=== PATIENT | female | born 1995 | race Caucasian/White ===

== ENCOUNTER 2018-04-24 10:52 | Outpatient (CLI) | payer OTHER | END 2018-04-24 13:00 | disposition home or self-care (01) | LOC: OBT 10:52 → L-D 10:52 → OBT 13:00 | DX: O36.8130 Decreased fetal movements, third trimester, not applicable or unspecified (principal); Z3A.39 39 weeks gestation of pregnancy | CPT/HCPCS: 76815; 76818 ==

== ENCOUNTER 2018-04-28 07:18 | Outpatient (CLI) | payer OTHER ==
[2018-04-28 10:09] LABS: RUPTURE FETAL MEMBRANES NEGATIVE (NEGATIVE)
== END 2018-04-28 10:25 | disposition home or self-care (01) ==
LOC: OBT 07:18 → L-D 07:18 → OBT 10:25
DX: O41.93X0 Disorder of amniotic fluid and membranes, unspecified, third trimester, not applicable or unspecified (principal); Z3A.39 39 weeks gestation of pregnancy
CPT/HCPCS: 84112

== ENCOUNTER 2018-04-28 11:05 | Inpatient (IN) | payer OTHER ==
[2018-05-01] MEDS: LACTATED RINGER'S 1,000 ML IV ×3 (09:49→23:11)
[2018-05-01 09:53] LABS: ADD MAN DIFF? NO
[2018-05-01 09:55] LABS: BASOPHILS % 0.1 % (0.0-2.0); EOSINOPHILS % 0.1 % (0.0-7.0); HEMATOCRIT 37.1 % (37.0-47.0); HEMOGLOBIN 12.3 g/dl (12.0-16.0); LYMPHOCYTES # 1.7 10^3/ul (0.8-2.9); LYMPHOCYTES % 20.9 % (15.0-51.0); MEAN CORPUSCULAR HEMOGLOBIN 29.4 pg (29.0-33.0); MEAN CORPUSCULAR HGB CONC 33.2 g/dl (32.0-37.0); MEAN CORPUSCULAR VOLUME 88.8 fl (82.0-101.0); MEAN PLATELET VOLUME 10.8 fl (7.4-10.4); MONOCYTE # 0.5 10^3/ul (0.3-0.9); MONOCYTES % 6.7 % (0.0-11.0); NEUTROPHIL # 5.7 10^3/ul (1.6-7.5); NEUTROPHILS % 71.8 % (39.0-77.0); PLATELET COUNT 216 10^3/UL (140-415); RED BLOOD COUNT 4.18 10^6/ul (4.20-5.40); RED CELL DISTRIBUTION WIDTH 14.2 % (11.5-14.5)
[2018-05-01 09:55] LABS: WHITE BLOOD COUNT 7.9 10^3/ul (4.8-10.8)
[2018-05-01] MEDS ORDERED: METHYLERGONOVINE 0.2 MG INJ IM (10:00)
[2018-05-01] MEDS ORDERED: IBUPROFEN 600 MG TAB PO (10:00)
[2018-05-01] MEDS ORDERED: CARBOPROST 250 MCG INJ IM (10:00)
[2018-05-01] MEDS ORDERED: LIDOCAINE 1% (MPF) 30 ML INJ INJ (10:00)
[2018-05-01] MEDS ORDERED: OXYTOCIN 30 UNITS/LR 500 ML IV ×3 (10:00)
[2018-05-01] MEDS ORDERED: MISOPROSTOL 200 MCG TAB PR (10:00)
[2018-05-01 10:14] LABS: INR 0.79; PROTIME 11.1 Sec (11.9-14.9); PT RATIO 0.9
[2018-05-01 10:15] LABS: PARTIAL THROMBOPLASTIN TIME 27.2 Sec (23.0-35.0)
[2018-05-01 12:17] LABS: HEPATITIS B SURFACE ANTIGEN NEGATIVE (NEGATIVE)
[2018-05-01 14:59] LABS: RAPID PLASMA REAGIN NONREACTIVE (NR)
[2018-05-01] MEDS: OXYTOCIN 30 UNITS/LR 500 ML IV (18:27)
[2018-05-02] MEDS: BUTORPHANOL 2 MG INJ IV ×2 (04:13→06:29)
[2018-05-02] MEDS: LACTATED RINGER'S 1,000 ML IV ×2 (07:30→17:40)
[2018-05-02] MEDS ORDERED: ERYTHROMYCIN 1 GM OPH OINT (11:35)
[2018-05-02] MEDS ORDERED: PHYTONADIONE 1 MG/0.5 ML SYG (11:35)
[2018-05-02] MEDS: OXYTOCIN 30 UNITS/LR 500 ML IV (12:04)
[2018-05-02] MEDS ORDERED: OXYTOCIN 30 UNITS/LR 500 ML IV (12:30)
[2018-05-02] MEDS ORDERED: METHYLERGONOVINE 0.2 MG INJ IM (12:30)
[2018-05-02] MEDS: IBUPROFEN 600 MG TAB PO ×3 (12:30→23:57)
[2018-05-02] MEDS ORDERED: CARBOPROST 250 MCG INJ IM (12:30)
[2018-05-02] MEDS ORDERED: MISOPROSTOL 200 MCG TAB PR (12:30)
[2018-05-02] MEDS ORDERED: NACL 0.9% 3 ML SYG IV (12:30)
[2018-05-02] MEDS: WITCH HAZEL/GLYCERIN PAD PR (13:49)
[2018-05-02] MEDS: BENZOCAINE 20% 56 ML SPRAY TOP (13:50)
[2018-05-02] MEDS: LANOLIN HPA 1 PKT TOP (13:50)
[2018-05-03] MEDS: LACTATED RINGER'S 1,000 ML IV (01:40)
[2018-05-03] MEDS: IBUPROFEN 600 MG TAB PO ×4 (06:00→23:44)
[2018-05-03] MEDS ORDERED: OXYTOCIN 30 UNITS/LR 500 ML IV (08:00)
[2018-05-03] MEDS ORDERED: LANOLIN HPA 1 PKT TOP (08:00)
[2018-05-03] MEDS ORDERED: ZOLPIDEM 5 MG TAB PO (08:00)
[2018-05-03] MEDS ORDERED: BENZOCAINE 20% 56 ML SPRAY TOP (08:00)
[2018-05-03] MEDS ORDERED: WITCH HAZEL/GLYCERIN PAD PR (08:00)
[2018-05-03] MEDS ORDERED: CARBOPROST 250 MCG INJ IM (08:00)
[2018-05-03] MEDS ORDERED: MISOPROSTOL 200 MCG TAB PR (08:00)
[2018-05-03] MEDS ORDERED: OXYCODONE/ASPIRIN (4.88/325) TAB PO ×2 (08:00)
[2018-05-03] MEDS ORDERED: METHYLERGONOVINE 0.2 MG INJ IM (08:00)
[2018-05-03 08:25] LABS: ADD MAN DIFF? NO
[2018-05-03 08:29] LABS: BASOPHILS % 0.2 % (0.0-2.0); EOSINOPHILS % 0.2 % (0.0-7.0); HEMATOCRIT 29.4 % (37.0-47.0); HEMOGLOBIN 9.5 g/dl (12.0-16.0); LYMPHOCYTES # 2.1 10^3/ul (0.8-2.9); LYMPHOCYTES % 19.3 % (15.0-51.0); MEAN CORPUSCULAR HEMOGLOBIN 29.3 pg (29.0-33.0); MEAN CORPUSCULAR HGB CONC 32.3 g/dl (32.0-37.0); MEAN CORPUSCULAR VOLUME 90.7 fl (82.0-101.0); MEAN PLATELET VOLUME 11.1 fl (7.4-10.4); MONOCYTE # 0.8 10^3/ul (0.3-0.9); MONOCYTES % 7.5 % (0.0-11.0); NEUTROPHIL # 7.7 10^3/ul (1.6-7.5); NEUTROPHILS % 72.4 % (39.0-77.0); PLATELET COUNT 187 10^3/UL (140-415); RED BLOOD COUNT 3.24 10^6/ul (4.20-5.40); RED CELL DISTRIBUTION WIDTH 14.6 % (11.5-14.5)
[2018-05-03 08:29] LABS: WHITE BLOOD COUNT 10.6 10^3/ul (4.8-10.8)
[2018-05-03] MEDS: SENNA/DOCUSATE NA (8.6MG/50MG) TAB PO ×2 (09:35→21:08)
[2018-05-04] MEDS: IBUPROFEN 600 MG TAB PO ×2 (05:36→12:03)
[2018-05-04] MEDS: SENNA/DOCUSATE NA (8.6MG/50MG) TAB PO (09:21)
[2018-05-04] MEDS: DIPHTH/TET/ACEL PERTUSS (ADULT) 0.5 ML VIAL IM* (09:23)
== END 2018-05-04 17:00 | disposition home or self-care (01) | DRG 807 ==
LOC: OBT 11:05 → PP1 05-02 12:03 → OBT 05-01 08:17 → L-D 05-01 08:18 → OBT 05-01 09:05 → L-D 05-01 09:05
PROVIDERS: Specialist
PROC: 10E0XZZ Delivery of Products of Conception, External Approach (ICD-10-PCS; principal; 2018-05-02)
PROC: 0HQ9XZZ Repair Perineum Skin, External Approach (ICD-10-PCS; 2018-05-02)
DX: O69.81X0 Labor and delivery complicated by cord around neck, without compression, not applicable or unspecified (principal); O70.9 Perineal laceration during delivery, unspecified; Z37.0 Single live birth; Z3A.40 40 weeks gestation of pregnancy
CPT/HCPCS: 76818; 85025; 85610; 85730; 86592; 86900; 86901; 87340; J3430

== ENCOUNTER 2018-06-01 22:31 | Emergency (ER) | payer OTHER ==
[2018-06-02] MEDS: morphine 4 MG/ML VIAL IV (01:30)
[2018-06-02] MEDS: ONDANSETRON 4 MG INJ IV (01:30)
[2018-06-02 01:36] LABS: ADD MAN DIFF? NO
[2018-06-02] MEDS: SOD CHLORIDE 0.9% 1,000 ML IV (01:38)
[2018-06-02 01:41] LABS: BASOPHILS % 0.1 % (0.0-2.0); EOSINOPHILS % 0.4 % (0.0-7.0); HEMATOCRIT 42.7 % (37.0-47.0); HEMOGLOBIN 13.8 g/dl (12.0-16.0); LYMPHOCYTES # 1.7 10^3/ul (0.8-2.9); LYMPHOCYTES % 18.7 % (15.0-51.0); MEAN CORPUSCULAR HEMOGLOBIN 28.8 pg (29.0-33.0); MEAN CORPUSCULAR HGB CONC 32.3 g/dl (32.0-37.0); MEAN CORPUSCULAR VOLUME 89.1 fl (82.0-101.0); MEAN PLATELET VOLUME 9.8 fl (7.4-10.4); MONOCYTE # 0.6 10^3/ul (0.3-0.9); MONOCYTES % 6.2 % (0.0-11.0); NEUTROPHIL # 6.9 10^3/ul (1.6-7.5); NEUTROPHILS % 74.2 % (39.0-77.0); PLATELET COUNT 280 10^3/UL (140-415); RED BLOOD COUNT 4.79 10^6/ul (4.20-5.40); RED CELL DISTRIBUTION WIDTH 13.2 % (11.5-14.5)
[2018-06-02 01:41] LABS: WHITE BLOOD COUNT 9.3 10^3/ul (4.8-10.8)
[2018-06-02 01:56] LABS: ADD UMIC YES; UR ASCORBIC ACID NEGATIVE (NEGATIVE); UR BACTERIA FEW /HPF (NONE SEEN); UR BILIRUBIN (Dip) NEGATIVE (NEGATIVE); UR BLOOD (Dip) NEGATIVE (NEGATIVE); UR CLARITY SLIGHTLY CLOUDY (CLEAR); UR COLOR YELLOW (YELLOW); UR GLUCOSE (Dip) NEGATIVE (NEGATIVE); UR KETONES (Dip) NEGATIVE (NEGATIVE); UR LEUKOCYTE ESTERASE (Dip) 3+ Leu/ul (NEGATIVE); UR MUCUS FEW /HPF (NONE SEEN); UR NITRITE (Dip) NEGATIVE (NEGATIVE); UR RBC 2 /HPF (0-5); UR SPECIFIC GRAVITY (Dip) 1.009 (1.003-1.030); UR SQUAMOUS EPITHELIAL CELL FEW /HPF (FEW); UR TOTAL PROTEIN (Dip) NEGATIVE (NEGATIVE); UR UROBILINOGEN (Dip) NEGATIVE (NEGATIVE); UR WBC 38 /HPF (0-5)
[2018-06-02 01:58] LABS: ALANINE AMINOTRANSFERASE 252 IU/L (13-69); ALBUMIN 4.2 g/dl (3.3-4.9); ALBUMIN/GLOBULIN RATIO 1.35; ALKALINE PHOSPHATASE 241 IU/L (42-121); AMYLASE 70 U/L (11-123); ANION GAP 9 (5-13); ASPARTATE AMINO TRANSFERASE 433 IU/L (15-46); BILIRUBIN,INDIRECT 0.2 mg/dl (0-1.1); BILIRUBIN,TOTAL 0.2 mg/dl (0.2-1.3); BLOOD UREA NITROGEN 8 mg/dl (7-20); CALCIUM 9.6 mg/dl (8.4-10.2); CARBON DIOXIDE 29 mmol/L (21-31); CHLORIDE 105 mmol/L (97-110); Estimated GFR > 60 mL/min (>60); GLUCOSE 118 mg/dl (70-220); LIPASE 78 U/L (23-300); POTASSIUM 3.9 mmol/L (3.5-5.1); SODIUM 143 mmol/L (135-144); TOTAL PROTEIN 7.3 g/dl (6.1-8.1)
[2018-06-02] MEDS: CEPHALEXIN 500 MG CAP PO (04:21)
== END 2018-06-02 04:33 | disposition home or self-care (01) ==
LOC: FTE 22:31
DX: K80.20 Calculus of gallbladder without cholecystitis without obstruction (principal); N39.0 Urinary tract infection, site not specified
CPT/HCPCS: 36415; 71046; 76705; 80053; 81001; 81025; 82150; 83690; 85025; 99285-25

== ENCOUNTER 2018-07-07 08:57 | Day surgery (SDC) | payer OTHER ==
[~2018-07-07 08:57] MED LIST: NEOSTIGMINE 10 MG INJ
[2018-07-07] MEDS ORDERED: SOD CHLORIDE 0.9% 1,000 ML IV (12:00)
[2018-07-07] MEDS ORDERED: CEFAZOLIN 2 GM/50 ML (PMX) 50 ML IVPB (12:00)
[2018-07-07] MEDS ORDERED: PROPOFOL 20 ML (12:37)
[2018-07-07] MEDS ORDERED: CEFAZOLIN 1 GM INJ (12:37)
[2018-07-07] MEDS ORDERED: ROCURONIUM 50 MG INJ (12:37)
[2018-07-07] MEDS ORDERED: GLYCOPYRROLATE 0.4 MG INJ (12:37)
[2018-07-07] MEDS ORDERED: MIDAZOLAM 1 MG/ML 2 ML INJ (12:38)
[2018-07-07] MEDS ORDERED: FENTAnyl 50 MCG/ML VIAL (12:38)
[2018-07-07] MEDS ORDERED: DEXAMETHASONE 4 MG/ML 5 ML INJ (12:38)
[2018-07-07] MEDS ORDERED: ONDANSETRON 4 MG INJ (12:38)
[2018-07-07] MEDS ORDERED: ROPIVACAINE 0.5 % 30 ML VIAL (13:26)
[2018-07-07] MEDS ORDERED: LABETALOL HCL 20MG INJ IV (13:30)
[2018-07-07] MEDS ORDERED: MEPERIDINE 25 MG INJ IV (13:30)
[2018-07-07] MEDS ORDERED: OXYCODONE/ACETAMINOPHEN (5/325) TAB PO ×2 (13:30)
[2018-07-07] MEDS ORDERED: HYDROmorphONE 1 MG/5 ML IV SYRINGE IV ×3 (13:30)
[2018-07-07] MEDS ORDERED: TRIMETHOBENZAMIDE 100 MG/ML VIAL IM (13:30)
[2018-07-07] MEDS ORDERED: ONDANSETRON 4 MG INJ IV (13:30)
[2018-07-07] MEDS ORDERED: ALBUTEROL 0.083% (NEB) 2.5 MG/3 ML AMP HHN (13:30)
[2018-07-07] MEDS ORDERED: hydrALAzine 20 MG INJ IV (13:30)
[2018-07-07] MEDS ORDERED: EPHEDrine SULFATE 50 MG/5 ML SYG IV (13:30)
[2018-07-07] MEDS ORDERED: DIPHENHYDRAMINE 50 MG INJ IV (13:30)
[2018-07-07] MEDS ORDERED: FENTAnyl 50 MCG/ML VIAL IV ×2 (13:30)
[2018-07-07] MEDS ORDERED: IPRATROPIUM (NEB) 0.5 MG/2.5 ML AMP HHN (13:30)
[2018-07-07] MEDS ORDERED: SUGAMMADEX SODIUM 200 MG/2 ML VIAL IV (14:15)
[2018-07-07] MEDS: MIDAZOLAM 1 MG/ML 2 ML INJ IV (14:28)
[2018-07-07] MEDS: FENTAnyl 50 MCG/ML VIAL IV ×2 (14:28→14:43)
[2018-07-07] MEDS ORDERED: HYDROCODONE/APAP (5/325) TAB PO (14:30)
== END 2018-07-07 15:59 | disposition home or self-care (01) ==
LOC: SDS 08:57
DX: K80.10 Calculus of gallbladder with chronic cholecystitis without obstruction (principal)
CPT/HCPCS: 47562; 84703; 88304